=== PATIENT | female | born 1945 | race Two or more races ===

== ENCOUNTER 2020-07-22 12:12 | Emergency (ER) | payer MEDICARE ==
[~2020-07-22] VITALS: Ht 162.6 cm; Wt 59.0 kg
[2020-07-22] MEDS ORDERED: LIDOCAINE 1% HCL (LOCAL ANESTH.) INJ 20ML MDV IJ ONE (13:30)
[2020-07-22] MEDS ORDERED: TETANUS-DIPTH-ACEL PERTUSSIS 0.5ML SYR Tdap IM ONE (13:30)
[2020-07-22 13:51] VITALS: BP 142/79
== END 2020-07-22 14:29 | disposition home or self-care (01) ==
LOC: EDBD 12:12 → ER 12:12
DX: S71.111A Laceration without foreign body, right thigh, initial encounter (principal); Z23 Encounter for immunization; W54.0XXA Bitten by dog, initial encounter; Y93.89 Activity, other specified; Y92.89 Other specified places as the place of occurrence of the external cause; Y99.8 Other external cause status
CPT/HCPCS: 12001; 90471; 90715; 99283; J2001